=== PATIENT | female | born 1940 | race Caucasian/White ===

== ENCOUNTER 2019-02-17 05:14 | Day surgery (SDC) | payer MEDICARE, BC ==
[2019-02-11 13:03] VITALS: BMI 23.2
[~2019-02-17] VITALS: Ht 151.1 cm; Wt 55.1 kg
[2019-02-17] VITALS (24 sets, daily range): BP systolic 106–159; BP diastolic 53–75; PULSE 80–96; RESP 15–25; Ht 151.1 cm; Wt 55.1 kg
[~2019-02-17 05:14] MED LIST: ASPI-716 PO; CYAN500T55 PO; LEVO25TA6 PO; LISI-313 PO; MV-M1TAB2 PO; OMEG-105 PO; VIACTIV SOFT C1 EACH PO
[2019-02-17] MEDS ORDERED: CEFAZOLIN 2 GM/50 ML (PMX) 50 ML IVPB SCH (06:00)
[2019-02-17] MEDS ORDERED: LACTATED RINGER'S 1,000 ML IV SCH (06:00)
[2019-02-17] MEDS ORDERED: GELATIN SIZE 100 SPONGE ONE (07:02)
[2019-02-17] MEDS ORDERED: SUCCINYLCHOLINE CHLORIDE 100 MG/5 ML SYG IV ONE (07:02)
[2019-02-17] MEDS ORDERED: PROPOFOL 20 ML ONE (07:02)
[2019-02-17] MEDS ORDERED: POLYMYXIN/BACITRACIN 1L IRRIG ONE (07:03)
[2019-02-17] MEDS ORDERED: LIDOCAINE 2% (SDV) 5 ML INJ ONE (07:03)
[2019-02-17] MEDS ORDERED: BUPIVACAINE 0.25% (MPF) 30 ML INJ ONE (07:03)
[2019-02-17] MEDS ORDERED: MEPERIDINE 100 MG INJ ONE (07:03)
[2019-02-17] MEDS ORDERED: ROCURONIUM 50 MG INJ ONE ×2 (07:03→08:04)
[2019-02-17] MEDS ORDERED: THROMBIN 5000 UNIT (RECOTHROM) VIAL ONE (07:03)
[2019-02-17] MEDS ORDERED: NEOSTIGMINE 3 MG/3 ML SYRINGE ONE ×2 (07:03→08:04)
[2019-02-17] MEDS ORDERED: GLYCOPYRROLATE 0.4 MG INJ ONE ×2 (07:03→08:04)
[2019-02-17] MEDS ORDERED: hydrALAzine 20 MG INJ ONE (07:41)
[2019-02-17] MEDS ORDERED: ONDANSETRON 4 MG INJ ONE (08:04)
[2019-02-17] MEDS ORDERED: METOCLOPRAMIDE 10 MG INJ ONE (08:04)
[2019-02-17] MEDS ORDERED: MIDAZOLAM 1 MG/ML 2 ML INJ IV PRN (10:00)
[2019-02-17] MEDS ORDERED: DIPHENHYDRAMINE 50 MG INJ IV PRN (10:00)
[2019-02-17] MEDS ORDERED: LABETALOL HCL 20MG INJ IV PRN (10:00)
[2019-02-17] MEDS ORDERED: FENTAnyl 50 MCG/ML VIAL IV PRN ×3 (10:00)
[2019-02-17] MEDS ORDERED: MEPERIDINE 25 MG INJ IV PRN (10:00)
[2019-02-17] MEDS ORDERED: METOCLOPRAMIDE 10 MG INJ IV PRN (10:00)
[2019-02-17] MEDS ORDERED: hydrALAzine 20 MG INJ IV PRN (10:00)
[2019-02-17] MEDS ORDERED: HYDROmorphONE 1 MG/5 ML IV SYRINGE IV PRN ×3 (10:00)
[2019-02-17] MEDS ORDERED: ONDANSETRON 4 MG INJ IV PRN (10:00)
[2019-02-17] MEDS ORDERED: EPHEDrine 25 MG/5 ML SYG IV PRN (10:00)
[2019-02-17] MEDS: DEXTROSE 5%-0.45% NACL 1,000 ML IV SCH ×2 (10:22→22:00)
[2019-02-17] MEDS ORDERED: DIAZEPAM 10 MG/2 ML SYG IM PRN (10:30)
[2019-02-17] MEDS ORDERED: DIPHENHYDRAMINE 50 MG CAP PO PRN (10:30)
[2019-02-17] MEDS ORDERED: HYDROCODONE/APAP (5/325) TAB PO PRN ×2 (10:30)
[2019-02-17] MEDS ORDERED: NACL 0.9% 3 ML SYG IV SCH (10:30)
[2019-02-17] MEDS ORDERED: BETHANECHOL 25 MG TAB PO PRN (10:30)
[2019-02-17] MEDS ORDERED: HYDROmorphONE 0.2 MG/ML PCA IV SCH (10:30)
[2019-02-17] MEDS ORDERED: CEPASTAT LOZENGE MT PRN (10:30)
[2019-02-17] MEDS ORDERED: NALOXONE (0.4 MG/ML) INJ IV PRN (10:30)
[2019-02-17] MEDS ORDERED: AL HYDROX/MG HYDROX/SIMETH 30 ML CUP PO PRN (10:30)
[2019-02-17] MEDS ORDERED: ZOLPIDEM 5 MG TAB PO PRN (10:30)
[2019-02-17] MEDS ORDERED: DIAZEPAM 5 MG TAB PO PRN (10:30)
[2019-02-17] MEDS: ONDANSETRON 4 MG INJ IV PRN (19:05)
[2019-02-17] MEDS: PROCHLORPERAZINE 10 MG TAB PO PRN (20:01)
[2019-02-17] MEDS: FISH OIL 1,000 MG CAP PO SCH (21:00)
[2019-02-17] MEDS: RANITIDINE 150 MG TAB PO SCH (21:54)
[2019-02-18 00:45] VITALS: BP 101/51; PULSE 83; RESP 18
[2019-02-18] MEDS: ACETAMINOPHEN 325 MG TAB PO PRN ×3 (03:22→18:51)
[2019-02-18] MEDS: ONDANSETRON 4 MG INJ IV PRN ×2 (03:23→15:17)
[2019-02-18] MEDS: PROCHLORPERAZINE 10 MG TAB PO PRN ×3 (03:56→20:56)
[2019-02-18 04:48] VITALS: BP 93/52; PULSE 86; RESP 18
[2019-02-18] MEDS: TRIMETHOBENZAMIDE 100 MG/ML VIAL IM PRN ×2 (05:54→08:29)
[2019-02-18] MEDS: LEVOTHYROXINE 25 MCG TAB PO SCH (06:53)
[2019-02-18] MEDS ORDERED: BETHANECHOL 25 MG TAB PO PRN (08:00)
[2019-02-18 08:22] VITALS: BP 121/58; PULSE 87; RESP 19
[2019-02-18] MEDS: DEXTROSE 5%-0.45% NACL 1,000 ML IV SCH (08:25)
[2019-02-18] MEDS: FERROUS SULFATE (EC) 325 MG TAB PO SCH ×2 (08:32→13:53)
[2019-02-18] MEDS: DOCUSATE SODIUM 100 MG CAP PO SCH ×2 (08:32→20:57)
[2019-02-18] MEDS: FISH OIL 1,000 MG CAP PO SCH (08:32)
[2019-02-18] MEDS: RANITIDINE 150 MG TAB PO SCH ×2 (08:33→20:57)
[2019-02-18] MEDS ORDERED: ASCORBIC ACID 500 MG TAB PO SCH (09:00)
[2019-02-18] MEDS ORDERED: CALCIUM/VITAMIN D (500/200) TAB PO SCH (09:00)
[2019-02-18] MEDS ORDERED: MULTIVITAMINS THERAPEUTIC TAB PO SCH (09:00)
[2019-02-18] MEDS ORDERED: CYANOCOBALAMIN 500 MCG TAB PO SCH (09:00)
[2019-02-18] MEDS: LISINOPRIL 5 MG TAB PO SCH (09:44)
[2019-02-18 14:35] VITALS: BP 125/79; PULSE 78; RESP 18
[2019-02-18] MEDS ORDERED: BISACODYL 10 MG SUPP PR ONE (17:00)
[2019-02-18] MEDS ORDERED: NA PHOSPHATE/BIPHOS 133 ML ENEMA PR ONE (17:00)
[2019-02-18 19:28] VITALS: BP 164/70; PULSE 88; RESP 20
[2019-02-19 02:40] VITALS: BP 136/60; PULSE 92; RESP 18
[2019-02-19] MEDS: LEVOTHYROXINE 25 MCG TAB PO SCH (05:25)
[2019-02-19] MEDS: ACETAMINOPHEN 325 MG TAB PO PRN ×2 (07:19→14:13)
[2019-02-19 08:04] VITALS: BP 165/73; RESP 18
[2019-02-19] MEDS: DOCUSATE SODIUM 100 MG CAP PO SCH (08:07)
[2019-02-19] MEDS: RANITIDINE 150 MG TAB PO SCH (08:07)
[2019-02-19] MEDS: LISINOPRIL 5 MG TAB PO SCH (08:07)
[2019-02-19 16:36] VITALS: BP 146/78; PULSE 80; RESP 18
== END 2019-02-19 16:45 | disposition home or self-care (01) ==
LOC: REC 05:14 → UNDOADMIN 05:14 → SDS 05:14 → EDSTATUS 07:00 → REC 11:46 → MS1 11:46 → REC 12:29 → SDS 02-19 16:45
PROVIDERS: ATTEND Orthopaedic Surgery
DX: M48.061 Spinal stenosis, lumbar region without neurogenic claudication (principal); I10 Essential (primary) hypertension; E03.9 Hypothyroidism, unspecified
CPT/HCPCS: 63047; 63048; 72020; 74018; 80048; 80053; 81001; 85014; 85018; 85610; 85730; 86803; 86850; 86900; 86901; 86920; 87086; 87340; 88304; 88311; 97110; 97116; 97162; 97530; J0360; J0690; J1170; J2175; J2405; J2710; J2765; J3250; J7042; J7120